=== PATIENT | male | born 2000 | race Caucasian/White ===

== ENCOUNTER 2024-06-09 22:25 | Emergency (ER) | payer OTHER ==
[~2024-06-09] VITALS: Ht 160 cm; Wt 61.4 kg
[2024-06-10 00:35] LABS: HEMATOCRIT 41.7 % (42.0-52.0); HEMOGLOBIN 14.1 g/dl (13.5-17.5); MEAN CORPUSCULAR HGB CONC 33.8 g/dl (32.0-36.5); MEAN CORPUSCULAR VOLUME 85.6 fl (80.0-96.0); PLATELET COUNT, AUTOMATED 361 10^3/uL (150-450); RED BLOOD COUNT 4.87 10^6/uL (4.30-6.10); WHITE BLOOD COUNT 7.4 10^3/uL (4.0-10.0)
[2024-06-10 00:36] LABS: INR 1.09; PROTHROMBIN TIME 14.4 SECONDS (12.5-14.5)
[2024-06-10 00:47] LABS: BLOOD UREA NITROGEN 10 MG/DL (9-23); CALCIUM LEVEL 8.7 MG/DL (8.5-10.1); CARBON DIOXIDE LEVEL 28 MMOL/L (20-31); CHLORIDE LEVEL 111 MMOL/L (98-107); CREATININE FOR GFR 0.81 MG/DL (0.70-1.30); GLOMERULAR FILTRATION RATE > 60.0 (>60); GLUCOSE, FASTING 94 MG/DL (60-100); POTASSIUM SERUM 3.7 MMOL/L (3.5-5.1); SODIUM LEVEL 144 MMOL/L (136-145)
[2024-06-10] MEDS ORDERED: ISOVUE-370 76% 100ML VIAL As Ordered ONE (01:22)
[2024-06-10 01:30] LABS: ATYPICAL LYMPH 6 % (0-5); BASOPHILS 1 % (0-1); EOSINOPHILS 3 % (0-3); LYMPHOCYTES 23 % (16-44); MONOCYTES 5 % (0-5); NEUTROPHILS 62 % (28-66)
[2024-06-10 01:31] LABS: ANISOCYTOSIS 1+; PLATELET ESTIMATE NORMAL (NORMAL)
[2024-06-10] MEDS: PIPERACILLIN/TAZOBACTAM SOD 4.5 GM in DEXTROSE 5% (D5W) ADV/MINI-BAG 50 ML IV ONE (02:52)
[2024-06-10] MEDS ORDERED: AUGM500T34 PO (03:34)
[2024-06-10 05:00] VITALS: BP 112/68; TEMP 97.2; O2SAT 98
== END 2024-06-10 05:17 | disposition home or self-care (01) ==
LOC: M ED 22:25
DX: K52.9 Noninfective gastroenteritis and colitis, unspecified (principal); G80.9 Cerebral palsy, unspecified
CPT/HCPCS: 74177; 80048; 85025; 85610; 96365; 99284; J2543; Q9967

== ENCOUNTER 2024-06-18 12:45 | Emergency (ER) | payer MEDICAID, OTHER ==
[~2024-06-18] VITALS: Ht 154.9 cm; Wt 61.6 kg
[~2024-06-18 12:45] MED LIST: AUGM500T34 PO
[2024-06-18 12:48] VITALS: BP 138/80; TEMP 98.6; O2SAT 96
[2024-06-18] MEDS: ONDANSETRON 4MG ORAL DISINTEGRATING TAB SL STA (16:41)
== END 2024-06-18 18:34 | disposition home or self-care (01) ==
LOC: M ED 12:45
DX: U07.1 COVID-19 (principal); G80.9 Cerebral palsy, unspecified

== ENCOUNTER 2024-07-14 22:23 | Emergency (ER) | payer MEDICAID, SELFPAY ==
[~2024-07-14] VITALS: Ht 160 cm; Wt 64.4 kg
[2024-07-14] MEDS ORDERED: ESCITALOPRAM (22:33)
[2024-07-15 00:54] VITALS: TEMP 99.4
[2024-07-15] MEDS: NS 500 ML IV ONE (02:50)
[2024-07-15] MEDS: KETOROLAC 30 MG/ML 1ML VIAL IV ONE (03:05)
[2024-07-15] MEDS: METOCLOPRAMIDE INJ 10MG/2ML VIAL IV ONE (03:06)
[2024-07-15] MEDS: ACETAMINOPHEN *IV* 1,000 MG in IV 1 EA IV ONE (03:06)
[2024-07-15] MEDS ORDERED: IBUP-1022 PO (06:09)
[2024-07-15 06:17] VITALS: BP 90/51
[2024-07-15 06:18] VITALS: O2SAT 98
== END 2024-07-15 06:28 | disposition home or self-care (01) ==
LOC: M ED 22:23
DX: U07.1 COVID-19 (principal); G80.9 Cerebral palsy, unspecified; F32.A Depression, unspecified
CPT/HCPCS: 87486; 87581; 87633; 87798; 96361; 96374; 96375; 99284; J0131; J1100; J1885; J2765

== ENCOUNTER 2024-07-24 00:24 | Emergency (ER) | payer MEDICAID, SELFPAY ==
[~2024-07-24] VITALS: Ht 160 cm; Wt 63.0 kg
[~2024-07-24 00:24] MED LIST changes: +ESCITALOPRAM; +IBUP-1022 PO
[2024-07-24 02:30] VITALS: BP 127/71; TEMP 98.7; O2SAT 97
== END 2024-07-24 07:08 | disposition left against medical advice (07) ==
LOC: M ED 00:24
DX: Z53.21 Procedure and treatment not carried out due to patient leaving prior to being seen by health care provider (principal)

== ENCOUNTER 2024-09-01 03:08 | Emergency (ER) | payer MEDICAID ==
[~2024-09-01] VITALS: Ht 160 cm; Wt 65.0 kg
[2024-09-01 03:56] LABS: HEMATOCRIT 50.2 % (42.0-52.0); HEMOGLOBIN 16.9 g/dl (13.5-17.5); MEAN CORPUSCULAR HGB CONC 33.7 g/dl (32.0-36.5); MEAN CORPUSCULAR VOLUME 86.3 fl (80.0-96.0); PLATELET COUNT, AUTOMATED 328 10^3/uL (150-450); RED BLOOD COUNT 5.82 10^6/uL (4.30-6.10); WHITE BLOOD COUNT 8.1 10^3/uL (4.0-10.0)
[2024-09-01 04:23] LABS: AMPHETAMINES LEVEL URINE NEGATIVE (NEGATIVE); BARBITURATES URINE NEGATIVE (NEGATIVE); BENZODIAZEPINES URINE NEGATIVE (NEGATIVE); COCAINE METABOLITE URINE NEGATIVE (NEGATIVE)
[2024-09-01 04:24] LABS: CANNABINOIDS URINE NEGATIVE (NEGATIVE); METHADONE URINE NEGATIVE (NEGATIVE); OPIATES URINE NEGATIVE (NEGATIVE); PHENCYCLIDINE URINE NEGATIVE (NEGATIVE)
[2024-09-01 04:26] LABS: ETHYL ALCOHOL (ETHANOL) 0.144 % (0.000-0.010)
[2024-09-01 04:28] LABS: SALICYLATE LEVEL < 3.0 MG/DL (<30)
[2024-09-01 04:29] LABS: THYROID STIMULATING HORMONE 2.466 uIU/ML (0.55-4.78)
[2024-09-01 04:31] LABS: ALBUMIN 4.3 G/DL (3.2-5.2); ALKALINE PHOSPHATASE 106 U/L (40-129); ALT/SGPT 16 U/L (7.0-40); AST/SGOT 11 U/L (<34); BILIRUBIN,DIRECT 0.1 MG/DL (<0.4); BILIRUBIN,TOTAL 0.4 MG/DL (0.3-1.2); BLOOD UREA NITROGEN 12 MG/DL (9-23); CARBON DIOXIDE LEVEL 25 MMOL/L (20-31); CHLORIDE LEVEL 104 MMOL/L (98-107); CREATININE FOR GFR 0.71 MG/DL (0.70-1.30); GLOMERULAR FILTRATION RATE > 90.0 (>60); GLUCOSE, FASTING 101 MG/DL (60-100); POTASSIUM SERUM 3.9 MMOL/L (3.5-5.1); SODIUM LEVEL 143 MMOL/L (136-145); TOTAL PROTEIN 7.9 G/DL (5.7-8.2)
[2024-09-01] MEDS ORDERED: LEXA5TAB13 PO (04:33)
[2024-09-01] MEDS ORDERED: HOME MED LIST COMPLETE! XX SCH (04:35)
[2024-09-01 13:15] VITALS: BP 127/74; TEMP 98; O2SAT 99
== END 2024-09-01 13:22 | disposition home or self-care (01) ==
LOC: M ED 03:08
DX: F10.129 Alcohol abuse with intoxication, unspecified (principal); F32.A Depression, unspecified; F41.9 Anxiety disorder, unspecified; F84.0 Autistic disorder

== ENCOUNTER 2024-12-05 17:05 | Emergency (ER) | payer MEDICAID, OTHER ==
[~2024-12-05] VITALS: Ht 160 cm; Wt 62.5 kg
[~2024-12-05 17:05] MED LIST changes: +HYDR-3363 PO; +LATU20TA PO; +LEXA1TAB PO; +LEXA5TAB13 PO; +TRAZ-252 PO
[2024-12-05 17:09] VITALS: BP 130/62; TEMP 97.9; O2SAT 96
== END 2024-12-05 18:27 | disposition left against medical advice (07) ==
LOC: M ED 17:05
DX: Z53.21 Procedure and treatment not carried out due to patient leaving prior to being seen by health care provider (principal)

== ENCOUNTER 2025-01-08 18:25 | Emergency (ER) | payer OTHER ==
[~2025-01-08] VITALS: Ht 160 cm; Wt 60.3 kg
[~2025-01-08 18:25] MED LIST changes: -IBUP-1022 PO; +IBUP600T42 PO
[2025-01-08 20:47] VITALS: BP 131/83; TEMP 99.3; O2SAT 98
[2025-01-08] MEDS ORDERED: ONDA-282 PO (20:54)
[2025-01-08] MEDS: ONDANSETRON 4MG TAB PO ONE (20:56)
== END 2025-01-08 21:23 | disposition home or self-care (01) ==
LOC: M ED 18:25 → EDBD 18:25 → M ED 21:23
DX: R07.0 Pain in throat (principal); B34.8 Other viral infections of unspecified site; B34.1 Enterovirus infection, unspecified; G80.9 Cerebral palsy, unspecified; E73.9 Lactose intolerance, unspecified

== ENCOUNTER 2025-01-14 13:44 | Emergency (ER) | payer OTHER ==
[~2025-01-14] VITALS: Ht 160 cm; Wt 61.8 kg
[~2025-01-14 13:44] MED LIST changes: +ONDA-282 PO
[2025-01-14 14:26] LABS: BASO # 0.1 10^3/uL (0.0-0.2); BASO % 0.3 % (0.0-1.0); EOS # 0.1 10^3/uL (0.0-0.5); EOS % 0.5 % (0.0-3.0); LYMPH # 1.9 10^3/uL (1.5-5.0); LYMPH % 12.9 % (24.0-44.0); MONO # 1.3 10^3/uL (0.0-0.8); MONO % 9.0 % (2.0-8.0); NEUTROPHILS # 11.4 10^3/uL (1.5-8.5); NEUTROPHILS % 76.7 % (36.0-66.0); PLATELET COUNT, AUTOMATED 338 10^3/uL (150-450)
[2025-01-14] MEDS: NS (Normal Saline) 0.9% 1,000 ML IV ONE (15:41)
[2025-01-14] MEDS: KETOROLAC 30 MG/ML 1 ML VIAL IV ONE (15:41)
[2025-01-14 16:21] VITALS: BP 125/74; TEMP 98; O2SAT 99
[2025-01-14] MEDS ORDERED: ACET-907 PO (16:24)
[2025-01-14] MEDS ORDERED: FLON1SPR NARES (16:24)
[2025-01-14] MEDS ORDERED: IBUP600T42 PO (16:24)
== END 2025-01-14 16:33 | disposition home or self-care (01) ==
LOC: M ED 14:41
DX: R09.81 Nasal congestion (principal); B34.8 Other viral infections of unspecified site; G80.9 Cerebral palsy, unspecified
CPT/HCPCS: 71046; 80047; 85025; 87486; 87581; 87633; 87798; 99284; J1885

== ENCOUNTER 2025-01-16 22:20 | Inpatient (IN) | payer OTHER ==
[~2025-01-16] VITALS: Ht 160 cm; Wt 61.1 kg
[~2025-01-16 22:20] MED LIST changes: +ACET-907 PO; +FLON1SPR NARES
[2025-01-16 23:15] LABS: PLATELET COUNT, AUTOMATED 312 10^3/uL (150-450)
[2025-01-16 23:36] LABS: ALT/SGPT 41 U/L (7.0-40); AST/SGOT 37 U/L (<34); CALCIUM LEVEL 9.6 MG/DL (8.5-10.1); CARBON DIOXIDE LEVEL 31 MMOL/L (20-31); CHLORIDE LEVEL 99 MMOL/L (98-107); CREATININE FOR GFR 0.69 MG/DL (0.70-1.30); GLOMERULAR FILTRATION RATE > 90.0 (>60); POTASSIUM SERUM 4.2 MMOL/L (3.5-5.1); SALICYLATE LEVEL < 3.0 MG/DL (<30); SODIUM LEVEL 142 MMOL/L (136-145)
[2025-01-16] MEDS: ACETAMINOPHEN 325 MG TAB PO ONE (23:47)
[2025-01-16 23:53] LABS: AMPHETAMINES LEVEL URINE NEGATIVE (NEGATIVE); BARBITURATES URINE NEGATIVE (NEGATIVE); BENZODIAZEPINES URINE NEGATIVE (NEGATIVE); CANNABINOIDS URINE POSITIVE (NEGATIVE); COCAINE METABOLITE URINE NEGATIVE (NEGATIVE); METHADONE URINE NEGATIVE (NEGATIVE); OPIATES URINE NEGATIVE (NEGATIVE); PHENCYCLIDINE URINE NEGATIVE (NEGATIVE)
[2025-01-16] MEDS: IBUPROFEN 600 MG TAB PO ONE (23:58)
[2025-01-17 00:35] LABS: ETHYL ALCOHOL (ETHANOL) < 0.003 % (0.000-0.010)
[2025-01-17] MEDS ORDERED: MAALOX 30 ML SUSP *UDC PO PRN (01:05)
[2025-01-17] MEDS ORDERED: MOM 30 ML SUSPENSION UDC PO PRN (01:05)
[2025-01-17] MEDS ORDERED: IBUPROFEN 400 MG TAB PO PRN (01:05)
[2025-01-17 02:31] VITALS: BP 118/64; TEMP 97; O2SAT 98
[2025-01-17] MEDS ORDERED: ACETAMINOPHEN 325 MG TAB PO PRN (05:00)
[2025-01-17 06:30] VITALS: BP 126/58; TEMP 98.4; O2SAT 96
[2025-01-17] MEDS: ESCITALOPRAM OXALATE 10 MG TABLET PO SCH (13:57)
[2025-01-17] MEDS ORDERED: HOME MED LIST COMPLETE! XX SCH (15:00)
[2025-01-18 06:37] VITALS: BP 96/55; TEMP 98.2; O2SAT 97
[2025-01-18] MEDS: SODIUM CHLORIDE NASAL 0.65% SPRAY BTL (OCEAN) PRN (13:29)
[2025-01-18 16:40] VITALS: BP 131/80; TEMP 98.7; O2SAT 97
[2025-01-19 06:42] VITALS: BP 101/57; TEMP 98.4; O2SAT 97
[2025-01-19] MEDS: SODIUM CHLORIDE NASAL 0.65% SPRAY BTL (OCEAN) PRN (08:16)
[2025-01-19 15:13] VITALS: BP 128/78; TEMP 97.9; O2SAT 96
[2025-01-20 06:33] VITALS: BP 122/77; TEMP 97.6; O2SAT 97
[2025-01-20] MEDS: traZODone 50 MG TAB PO PRN (23:48)
[2025-01-21 06:37] VITALS: BP 105/49; TEMP 97.5; O2SAT 93
[2025-01-21 15:22] VITALS: BP 116/60; TEMP 97.7; O2SAT 97
[2025-01-22 06:19] VITALS: BP 120/62; TEMP 97; O2SAT 98
[2025-01-22] MEDS ORDERED: TRAZ-252 PO (08:29)
[2025-01-22] MEDS ORDERED: LEXA1TAB PO (08:29)
[2025-01-22] MEDS: ESCITALOPRAM OXALATE 10 MG TABLET PO SCH (08:35)
== END 2025-01-22 11:10 | disposition home or self-care (01) | DRG 753 ==
LOC: M ED 22:20 → M ED INP 01-17 01:05 → M PSY 01-17 02:05
PROVIDERS: ADMIT Student in an Organized Health Care Education/Training Program; ATTEND Psychiatry & Neurology Psychiatry
DX: F31.9 Bipolar disorder, unspecified (principal); Z91.198 Patient's noncompliance with other medical treatment and regimen for other reason; R45.851 Suicidal ideations; F90.9 Attention-deficit hyperactivity disorder, unspecified type; F60.3 Borderline personality disorder; F43.12 Post-traumatic stress disorder, chronic; F84.0 Autistic disorder; Z62.812 Personal history of neglect in childhood; Z56.0 Unemployment, unspecified; Z59.01 Sheltered homelessness; Z81.1 Family history of alcohol abuse and dependence; Z81.3 Family history of other psychoactive substance abuse and dependence; Z81.8 Family history of other mental and behavioral disorders; Z91.51 Personal history of suicidal behavior; Z91.52 Personal history of nonsuicidal self-harm

== ENCOUNTER 2025-02-28 16:55 | Emergency (ER) | payer MEDICAID, OTHER ==
[~2025-02-28] VITALS: Ht 160 cm; Wt 64.4 kg
[2025-02-28 19:51] LABS: BASO # 0.0 10^3/uL (0.0-0.2); BASO % 0.2 % (0.0-1.0); EOS # 0.1 10^3/uL (0.0-0.5); EOS % 0.7 % (0.0-3.0); LYMPH # 0.4 10^3/uL (1.5-5.0); LYMPH % 3.1 % (24.0-44.0); MONO # 0.7 10^3/uL (0.0-0.8); MONO % 5.8 % (2.0-8.0); NEUTROPHILS # 11.4 10^3/uL (1.5-8.5); NEUTROPHILS % 89.9 % (36.0-66.0); PLATELET COUNT, AUTOMATED 251 10^3/uL (150-450)
[2025-02-28 20:19] LABS: ALT/SGPT 22 U/L (7.0-40); AST/SGOT 18 U/L (<34); CALCIUM LEVEL 9.4 MG/DL (8.5-10.1); CARBON DIOXIDE LEVEL 28 MMOL/L (20-31); CHLORIDE LEVEL 104 MMOL/L (98-107); CREATININE FOR GFR 0.90 MG/DL (0.70-1.30); GLOMERULAR FILTRATION RATE > 90.0 (>60); POTASSIUM SERUM 4.2 MMOL/L (3.5-5.1); SODIUM LEVEL 144 MMOL/L (136-145)
[2025-03-01] MEDS: KETOROLAC 30 MG/ML 1 ML VIAL IV ONE (01:35)
[2025-03-01] MEDS: NS (Normal Saline) 0.9% 1,000 ML IV ONE (01:36)
[2025-03-01] MEDS: ONDANSETRON 4MG 2ML VIAL IV ONE (01:36)
[2025-03-01] MEDS: ACETAMINOPHEN *IV* 1,000 MG in IV 1 EA IV ONE (02:26)
[2025-03-01] MEDS ORDERED: ISOVUE-370 76% 100 ML VIAL As Ordered ONE (04:57)
[2025-03-01 06:30] VITALS: BP 108/54; TEMP 98.9; O2SAT 97
== END 2025-03-01 06:52 | disposition home or self-care (01) ==
LOC: M ED 16:55 → EDBD 16:55 → M ED 03-01 06:52
DX: A09 Infectious gastroenteritis and colitis, unspecified (principal); F43.10 Post-traumatic stress disorder, unspecified; G80.9 Cerebral palsy, unspecified; E73.9 Lactose intolerance, unspecified
CPT/HCPCS: 74177; 80048; 80076; 83690; 85025; 87486; 87581; 87633; 87798; 96365; 96366; 96375; 99285; J0131; J1885; J2405; Q9967